=== PATIENT | female | born 2000 | race Caucasian/White ===

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

== ENCOUNTER 2022-06-26 08:00 | Outpatient (CLI) | payer OTHER ==
[2022-06-28 10:07] LABS: HSV 2 IGG TYPE SPEC <0.91 index (0.00-0.90)
== END 2022-06-26 23:59 | disposition home or self-care (01) ==
LOC: LAB.N 08:00
PROVIDERS: ATTEND Physician Assistant
DX: B00.1 Herpesviral vesicular dermatitis (principal)
CPT/HCPCS: 36415; 86695; 86696

== ENCOUNTER 2022-10-15 21:58 | Emergency (ER) | payer MEDICAID, OTHER ==
[2022-10-15 22:12] VITALS: BP 114/78
[2022-10-15 22:27] LABS: RAPID STREP SCREEN Negative (Negative)
--- NOTE | 2022-10-15 22:44 | ED Physician Documentation ---
History of Present Illness - Stated complaint Stated Complaint: BODY PX,HEADACHE,SORETHROAT - Chief complaint Chief Complaint: General - History obtained from History obtained from: Patient - Additonal information Additional information: The patient comes to the emergency department chief complaint of headache, sore throat, body aches, and mild nausea that started today. She states she had a headache yesterday, but it felt like her normal migraine. Today, she woke up with the other symptoms. She denies any runny nose or cough. She has not vomited and actually, has been able to eat food, but states that she can just feel it going all through her system. She has also been able to drink water. The patient denies any other complaints at this time. She states she has had several bowel movements today but has not been diarrhea. 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 : None HEENT: None Psych: Depression Musculoskeletal: None Derm: None - Past Surgical History Past Surgical History: No - Present Medications Home Medications: Ambulatory Orders Medication Instructions Recorded Confirmed No Known Home Medications 10/15/22 10/15/22 - Allergies Allergies/Adverse Reactions: Allergies Allergy/AdvReac Type Severity Reaction Status Date / Time No Known Drug Allergies Allergy Verified 10/15/22 22:12 - Social History Does the pt smoke?: Yes Smoking Status: Current every day smoker Does the pt drink ETOH?: No Does the pt have substance abuse?: Yes - Immunizations Immunizations are current?: Yes - POLST Patient has POLST: No PD ED PE NORMAL - Vitals Vital signs reviewed: Yes - General General: Alert and oriented X 3, No acute distress, Well developed/nourished - HEENT HEENT: Atraumatic, PERRL, EOMI, Moist mucous membranes, Other (Pharyngeal erythema noted. Tonsils symmetrical. Single exudative patch noted on right tonsil.) - Neck Neck: Supple, no meningeal sign, Other (Mild bilateral cervical adenopathy, tender.) - Cardiac Cardiac: RRR, No murmur - Respiratory Respiratory: No respiratory distress, Clear bilaterally - Abdomen Abdomen: Soft, Non tender, Non distended - Derm Derm: Normal color, Warm and dry, No rash - Extremities Extremities: No deformity - Neuro Neuro: Other (Grossly intact) - Psych Psych: Normal mood, Normal affect Results - Vitals Vitals: Vital Signs - 24 hr 10/15/22 22:05 Temperature 37.9 C Heart Rate 112 H Respiratory 18 Rate Blood Pressure 114/78 O2 Saturation 98 Oxygen O2 Source Room air - Labs Labs: Laboratory Tests 10/15/22 22:15 Group A Strep Rapid Negative PD Medical Decision Making - ED course Complexity details: reviewed results, re-evaluated patient, considered differential, d/w patient ED course: Patient was worked up with a rapid strep and a respiratory PCR panel. The rapid strep was negative and I discussed with the patient that most likely, her symptoms are viral in nature. However, we did discuss that a throat culture will be performed off of the swab that was used for the rapid strep, and If there is any significant growth, we will call in an antibiotic for her and notify her. We have discussed symptomatic management at home, as well as the usual indications for return. Departure - Departure Disposition: 01 Home, Self Care Clinical Impression: Viral syndrome Pharyngitis Qualifiers: Pharyngitis/tonsillitis etiology: unspecified etiology Qualified Code(s): J02.9 - Acute pharyngitis, unspecified Condition: Stable Instructions: ED Viral Syndrome Comments: Your symptoms are most likely caused by one of the many viruses that are going around at this time. We are seeing a lot of patients with similar symptoms of body aches, sore throat, upper respiratory symptoms, and digestive upset. In general, these illnesses last for anywhere from a few days to a week or 2 and then go away on their own. We have performed a strep test and a viral panel and you tonight. Your strep test is negative, though this is a rapid strep and a throat culture will be performed on the same swab to see if any other bacteria grow out insignificance. If you happen to be positive for one of the less common strep subgroups, then we will let you know and get you started on antibiotics. A rapid strep test test for the most common type of strep that causes strep throat but as we have discussed occasionally other subgroups can cause infection and your throat. As far as your viral panel, this can sometimes take some hours to come back, so we will let you go home, but if there are any significant positive findings we will call you. You may also visit our website at [email or web address], click on that "my [email or web address]" tab, and sign up for the patient portal to monitor your results from home. Please get plenty of rest and lots of water to drink. If food is upsetting your stomach, then either take a day off of eating or stick with just simple starches like top Ramen or saltines to decrease the digestive work that your stomach has to do. If you begin to get severely worsening throat pain or cannot take in liquids, then please seek medical reevaluation. Otherwise, you may use ibuprofen and Tylenol to help with the discomfort. You may also use [id number] cold/flu preparations, though some of these contain Tylenol which is acetaminophen, so be sure you are not doubling up.
[2022-10-15 23:14] LABS: B. PARAPERTUSSIS- RESP PCR PAN NOT DETECTED; B. PERTUSSIS- RESP PCR PANEL NOT DETECTED; C. PNEUMONIAE- RESP PCR PANEL NOT DETECTED; CORONAVIRUS 229E-RESP PCR NOT DETECTED; CORONAVIRUS HKU1-RESP PCR NOT DETECTED; CORONAVIRUS NL63-RESP PCR NOT DETECTED; CORONAVIRUS OC43-RESP PCR NOT DETECTED; HUMAN METAPNEUMOVIRUS NOT DETECTED; INFLUENZA A- RESP PCR PANEL NOT DETECTED; INFLUENZA B - RESP PCR PANEL NOT DETECTED; M. PNEUMONIAE- RESP PCR PANEL NOT DETECTED; PARAINFLUENZA VIRUS 1 NOT DETECTED; PARAINFLUENZA VIRUS 2 NOT DETECTED; PARAINFLUENZA VIRUS 3 NOT DETECTED; PARAINFLUENZA VIRUS 4 NOT DETECTED; RHINOVIRUS/ENTEROVIRUS NOT DETECTED; RSV- RESP PCR PANEL NOT DETECTED; SARS-CoV-2 -RESP PCR PANEL NOT DETECTED
== END 2022-10-15 22:47 | disposition home or self-care (01) ==
LOC: ED 21:58
DX: B34.9 Viral infection, unspecified (principal); J02.9 Acute pharyngitis, unspecified; F17.200 Nicotine dependence, unspecified, uncomplicated; Z20.822 Contact with and (suspected) exposure to COVID-19
CPT/HCPCS: 87070; 87430; 87633; 99283

== ENCOUNTER 2022-10-29 22:24 | Emergency (ER) | payer MEDICAID ==
[2022-10-29 22:50] LABS: BILIRUBIN,URINE NEGATIVE (NEGATIVE); GLUCOSE, URINE (UA) NEGATIVE (NEGATIVE); KETONES,URINE (UA) NEGATIVE (NEGATIVE); LEUKOCYTE ESTERASE, URINE TRACE (NEGATIVE); NITRITE,URINE NEGATIVE (NEGATIVE); OCCULT BLOOD,URINE NEGATIVE (NEGATIVE); PROTEIN,URINE TRACE mg/dL (NEGATIVE); UROBILINOGEN,URINE 0.2 (NORMAL) E.U./dL (NORMAL)
[2022-10-29 22:54] LABS: CLARITY,URINE CLOUDY (CLEAR); HCG UR QUAL NEGATIVE
[2022-10-29 23:03] LABS: BACTERIA,URINE Few /HPF (None Seen); MUCUS,URINE Few Strands; RBC,URINE 0-5 /HPF (0-5); SQUAMOUS EPITHELIAL CELL,UR MANY Squamous (<= Few); WBC,URINE >25 /HPF (0-5)
--- NOTE | 2022-10-30 02:14 | ED Physician Documentation ---
PD HPI FEMALE - Stated complaint Stated Complaint: FEMALE - Chief complaint Chief Complaint: UTI - History obtained from History obtained from: Patient - History of Present Illness Contributing factors: No: - Additional information Additional information: c/o dysuria x 1-2 days, primarily as she is finishing urinating. Also notes urinary frequency and sensation of incomplete voiding. 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 ACID OPERATOR: None : None HEENT: None Psych: Depression Musculoskeletal: None Derm: None - Past Surgical History Past Surgical History: No - Present Medications Home Medications: Ambulatory Orders Medication Instructions Recorded Confirmed Nitrofurantoin [Macrobid] 100 mg PO BID #9 cap 10/30/22 Phenazopyridine HCl [Pyridium] 200 mg PO TID PRN #6 tablet 10/30/22 - Allergies Allergies/Adverse Reactions: Allergies Allergy/AdvReac Type Severity Reaction Status Date / Time No Known Drug Allergies Allergy Verified 10/29/22 22:41 - Social History Does the pt smoke?: Yes Smoking Status: Current every day smoker Does the pt drink ETOH?: No Does the pt have substance abuse?: Yes - Immunizations Immunizations are current?: Yes - POLST Patient has POLST: No PD ED PE NORMAL - Vitals Vital signs reviewed: Yes - General General: Alert and oriented X 3, No acute distress, Well developed/nourished - Abdomen Abdomen: Soft, Non tender - Back Back: No CVA TTP Results - Vitals Vitals: Oxygen O2 Source Room air - Labs Labs: Laboratory Tests 10/29/22 22:35 Urine Color YELLOW Urine Clarity CLOUDY Urine pH 6.0 Ur Specific [place] >=1.030 H Urine Protein TRACE Urine Glucose (UA) NEGATIVE Urine Ketones NEGATIVE Urine Occult Blood NEGATIVE Urine Nitrite NEGATIVE Urine Bilirubin NEGATIVE Urine Urobilinogen 0.2 (NORMAL) Ur Leukocyte Esterase TRACE H Urine RBC 0-5 Urine WBC >25 H Ur Squamous Epith Cells MANY Squamous H Urine Bacteria Few Urine Mucus Few Strands Ur Microscopic Review INDICATED Urine Culture Comments NOT INDICATED Urine HCG, Qual NEGATIVE PD Medical Decision Making - ED course Complexity details: reviewed results, considered differential, d/w patient ED course: symptoms and urinalysis results are c/w UTI. She is given macrobid and pyridium in ED with prescriptions for both of these medications e-prescribed to her pharmacy of choice. Return precautions discussed Departure - Departure Disposition: 01 Home, Self Care Clinical Impression: Urinary tract infection Condition: Good Instructions: ED UTI Cystitis Female Prescriptions: Nitrofurantoin [Macrobid] 100 mg PO BID #9 cap Phenazopyridine HCl [Pyridium] 200 mg PO TID PRN #6 tablet PRN Reason: dysuria Comments: The urinalysis result is consistent with a urinary tract infection. You are given the first dose of an antibiotic (Macrobid) in the emergency department along with Pyridium (medication that can help alleviate the symptoms associated with a urinary tract infection). Prescriptions for these 2 medications were electronically submitted to the [facility] pharmacy in [place]. Discharge Date/Time: 10/30/22 02:48
[2022-10-30] MEDS ORDERED: NITROFURANTOIN MACRO 100 MG CAPSULE PO STA (02:32)
[2022-10-30] MEDS ORDERED: PHENAZOPYRIDINE 100 MG TABLET PO STA (02:32)
[2022-10-30 02:49] VITALS: BP 113/68
== END 2022-10-30 02:48 | disposition home or self-care (01) ==
LOC: ED 22:24
DX: N39.0 Urinary tract infection, site not specified (principal); F17.200 Nicotine dependence, unspecified, uncomplicated
CPT/HCPCS: 81001; 81025; 99283; A9270; 81003; 87086

== ENCOUNTER 2024-02-02 16:00 | Outpatient (CLI) | payer MEDICAID | END 2024-02-02 16:15 | disposition home or self-care (01) | LOC: LAB.N 16:00 | PROVIDERS: ATTEND Physician Assistant Medical | DX: Z32.01 Encounter for pregnancy test, result positive (principal) | CPT/HCPCS: 36415; 84702 ==

== ENCOUNTER 2024-02-14 08:00 | Outpatient (CLI) | payer MEDICAID ==
[2024-02-14 15:59] LABS: BILIRUBIN,URINE NEGATIVE (NEGATIVE); GLUCOSE, URINE (UA) NEGATIVE (NEGATIVE); KETONES,URINE (UA) NEGATIVE (NEGATIVE); LEUKOCYTE ESTERASE, URINE NEGATIVE (NEGATIVE); NITRITE,URINE NEGATIVE (NEGATIVE); OCCULT BLOOD,URINE NEGATIVE (NEGATIVE); PH,URINE 5.5 PH (5.0-7.5); PROTEIN,URINE NEGATIVE (NEGATIVE); UROBILINOGEN,URINE 0.2 (NORMAL) E.U./dL (NORMAL)
[2024-02-14 16:27] LABS: AMORPHOUS SEDIMENT,UR Moderate /LPF; BACTERIA,URINE Rare /HPF (None Seen); CLARITY,URINE CLOUDY (CLEAR); RBC,URINE None Seen /HPF (0-5); SQUAMOUS EPITHELIAL CELL,UR FEW Squamous (<= Few); WBC,URINE 0-3 /HPF (0-5)
== END 2024-02-14 23:59 | disposition home or self-care (01) ==
LOC: LAB.WC 08:00
PROVIDERS: ATTEND Nurse Practitioner
DX: Z34.90 Encounter for supervision of normal pregnancy, unspecified, unspecified trimester (principal)
CPT/HCPCS: 81001; 87086

== ENCOUNTER 2024-02-27 09:44 | Outpatient (CLI) | payer MEDICAID ==
--- NOTE | 2024-02-27 14:49 | Ultrasound Report ---
PROCEDURE: OB 1st Trimester w/TV INDICATIONS: POSITIVE TEST OUTSIDE/PRIOR DATING DATA: Last menstrual period (LMP): 01/01/2024. LMP-based estimated date of delivery (KIZZY): 10/07/2024. First dating scan (date and location): Today's exam. Estimated date of delivery (KIZZY) from first dating scan: 10/14/2024. TECHNIQUE: Real-time scanning was performed of the fetus and maternal pelvic organs, with image documentation. Endovaginal scanning was also performed to better visualize the fetus and maternal ovaries. COMPARISON: None. FINDINGS: Intrauterine gestational sac present. Embryo: Present, measuring 1.07 cm, 7 weeks 1 day Heart rate: 152 bpm. Other: No perigestational fluid collection. Measurement variability in dating: +/- 4 weeks by LMP, +/- 7 days by mean sac diameter (use before 6 weeks gestation if crown-rump length not able to be measured), +/- 5 days by crown-rump length (6-12 weeks gestation). Maternal organs: Ovaries appear within normal limits. IMPRESSION: Single living intrauterine at 7 weeks 1 day, KIZZY of 10/14/2024. Reviewed by: Yossi Aguayo MD on 02/27/2024 2:48 PM PDT Approved by: Yossi Aguayo MD on 02/27/2024 2:48 PM PDT Station ID: [id number]
== END 2024-02-27 09:45 | disposition home or self-care (01) ==
LOC: DI 09:44
PROVIDERS: ATTEND Nurse Practitioner
DX: Z34.91 Encounter for supervision of normal pregnancy, unspecified, first trimester (principal)

== ENCOUNTER 2024-03-16 08:00 | Outpatient (CLI) | payer MEDICAID ==
[2024-03-16 20:50] LABS: CHLAMYDIA TRACHOMATIS DNA NEGATIVE (NEGATIVE); NEISSERIA GONORRHOEAE DNA NEGATIVE (NEGATIVE)
[2024-03-16 21:51] LABS: BACTERIAL VAGINOSIS DNA POSITIVE (NEGATIVE); CANDIDA GLABRATA DNA NEGATIVE (NEGATIVE); CANDIDA GROUP DNA NEGATIVE (NEGATIVE); CANDIDA KRUSEI DNA NEGATIVE (NEGATIVE); TRICHOMONAS VAGINALIS DNA POSITIVE (NEGATIVE)
== END 2024-03-16 23:59 | disposition home or self-care (01) ==
LOC: LAB.WC 08:00
PROVIDERS: ATTEND Nurse Practitioner
DX: N89.8 Other specified noninflammatory disorders of vagina (principal); Z11.3 Encounter for screening for infections with a predominantly sexual mode of transmission
CPT/HCPCS: 81514; 87491; 87591; 87661

== ENCOUNTER 2024-04-13 08:00 | Outpatient (CLI) | payer MEDICAID ==
[2024-04-13 13:54] LABS: BASOPHILS % (AUTO) 0.4 %; EOSINOPHILS # (AUTO) 0.1 10^3/uL (0.0-0.7); EOSINOPHILS % (AUTO) 1.2 %; HCT - HEMATOCRIT 35.9 % (37.0-47.0); HGB - HEMOGLOBIN 12.3 g/dL (12.0-16.0); LYMPHOCYTES # (AUTO) 1.6 10^3/uL (1.5-3.5); LYMPHOCYTES % (AUTO) 21.7 %; MEAN CORPUSCULAR HEMOGLOBIN 31.2 pg (27.0-31.0); MEAN CORPUSCULAR HGB CONC 34.3 g/dL (32.0-36.0); MEAN CORPUSCULAR VOLUME 91.1 fL (81.0-99.0); MEAN PLATELET VOLUME 9.4 fL (7.9-10.8); MONOCYTES # (AUTO) 0.5 10^3/uL (0.0-1.0); MONOCYTES % (AUTO) 7.3 %; NEUTROPHILS # (AUTO) 5.1 10^3/uL (1.5-6.6); NEUTROPHILS % (AUTO) 68.9 %; PLT - PLATELET COUNT 265 10^3/uL (130-450); RED BLOOD COUNT 3.94 10^6/uL (4.20-5.40); WHITE BLOOD COUNT 7.4 x10^3/uL (4.8-10.8)
[2024-04-14 04:10] LABS: HBsAG SCREEN Negative (Negative); HIV SCREEN 4TH GENERATION Non Reactive (Non Reactive)
[2024-04-14 05:13] LABS: RPR Non Reactive (Non Reactive)
[2024-04-15 01:12] LABS: HCV AB Non Reactive (Non Reactive)
== END 2024-04-13 23:59 | disposition home or self-care (01) ==
LOC: LAB.WC 08:00
PROVIDERS: ATTEND Nurse Practitioner
DX: Z34.90 Encounter for supervision of normal pregnancy, unspecified, unspecified trimester (principal)
CPT/HCPCS: 36415; 82728; 85025; 86592; 86762; 86787; 86803; 86850; 86900; 86901; 87340; 87389

== ENCOUNTER 2024-10-09 16:47 | Inpatient (IN) ==
[2024-10-09] MEDS ORDERED: SODIUM CHLORIDE FLUSH 0.9% 10 ML SYRINGE IVP PRN (17:37)
[2024-10-09] MEDS ORDERED: TRANEXAMIC ACID IN NACL 1,000 MG/100 ML BAG IV PRN (17:37)
[2024-10-09] MEDS ORDERED: fentaNYL 100 MCG/2 ML VIAL IVP PRN (17:37)
[2024-10-09] MEDS ORDERED: OXYTOCIN/SODIUM CHLORIDE 500 ML IV PRN (17:37)
[2024-10-09] MEDS ORDERED: OXYTOCIN 10 UNIT/ML VIAL IM PRN (17:37)
[2024-10-09] MEDS ORDERED: lidocaine 1% 20 ML MDV ID PRN (17:37)
[2024-10-09] MEDS ORDERED: miSOPROStoL 200 MCG TABLET BC PRN (17:37)
[2024-10-09] MEDS ORDERED: LABETALOL 20 MG/4 ML SYRINGE IVP PRN ×3 (17:37)
[2024-10-09] MEDS ORDERED: NIFEdipine 10 MG CAPSULE PO PRN (17:37)
[2024-10-09] MEDS ORDERED: METHYLERGONOVINE 0.2 MG/ML VIAL IM PRN (17:37)
[2024-10-09] MEDS ORDERED: TERBUTALINE 1 MG/ML VIAL SUBQ PRN (17:37)
[2024-10-09] MEDS ORDERED: miSOPROStoL 200 MCG TABLET PR PRN (17:37)
[2024-10-09] MEDS ORDERED: hydrALAZINE INJ 20 MG/ML VIAL IVP PRN (17:37)
--- NOTE | 2024-10-09 17:44 | ANESTHESIA PROCEDURE NOTE ---
Pre-Anesthesia VS, & Labs Diagnosis Surgical Diagnosis:: labor induction Procedure Procedure: labor epidural NPO NPO: Other Is Patient ?: Yes Meds/Allgy Home Medications Ambulatory Orders Medication Instructions Recorded Confirmed vitamins no.159-iron 1 tab PO 06/21/24 10/02/24 fumarate 28 mg-folic acid 800 mcg tablet ( Vitamin) Allergies Allergies Allergy/AdvReac Type Severity Reaction Status Date / Time No Known Drug Allergies Allergy Verified 10/02/24 15:06 [facility] Medical History Medical History (Updated 09/26/24 @ 15:44 by Ricky Ledezma MD) Normal in second trimester Social History Social History (Updated 06/21/24 @ 18:07 by Keshia Moore MA) Smoking Status: Never smoker Do you vape?: Yes Living arrangement: At home Living Condition: With spouse/s.o. Relationship: Do you feel safe in your home environment?: Yes Suffered physical, verbal, emotional, or financial abuse?: No History of Abuse: No POLST Patient has POLST: No Anesthesia Exam (Expanded) Exam General: Alert, Oriented x3, Cooperative and No acute distress Dental: WNL Mouth Opening: Greater than 4 Fingerbreadths Neck Mobility: Normal Mallampati classification: I Thyromental Distance: greater than 6 cm Respiratory: Lungs clear Cardiovascular: Regular rate Plan Plan Anesthesia Type: Epidural Consent for Procedure(s) Verified and Reviewed: Yes Code Status: Attempt Resuscitation ASA Classification ASA classification: 2-Mild systemic disease Is this case an emergency?: No
--- NOTE | 2024-10-09 17:46 | HISTORY & PHYSICAL EXAMINATION ---
Admit History Smoking Status: Never smoker Other Maternal History Other Maternal History: HPI: This 24 yo @ 39+2 weeks by 7+1 week ultrasound (discordant with LMP) presents to L&D for elective induction of labor. Upon arrival her cervix was 3/60/-3, posterior, soft, intact and vertex by exam. Feeling irregular contractions but not painful. NAIK SCORE:6. She had been consented for induction in the clinic last week and has no further questions. She has been a patient of [facility] for the duration of her which has remained uncomplicated with the exception of iron deficiency anemia and first trimester trichomonas positive but negative at 36 weeks re-screen. ROS: No Headache, visual changes or right upper quadrant abdominal pain. Denies significant N/V. Denies urinary urgency or dysuria. All other symptoms reviewed and were negative except per HPI. In the event of an emergency, accepts the administration of blood products. Specific Issues/Plans 23y/o G-2P-0 LMP: 01/01/2024 KIZZY by LMP: 10/07/2024 02/27/2024/ 7+1/ NOT CONSISTENT ( KIZZY by u/s 10/14/2024) Final KIZZY: 10/14/2024 Medical Hx: No significant Surgical Hx: None Social Hx: Complex social situation with partner, who openly questions the paternity. Denies current use of alcohol marijuana or other recreational drugs. Endorses tobacco. Reports that she is safe in current relationship. Positive for trichomonas in the first trimester (treated). Re-screen at term (negative) Family Hx: Denies family history of congenital anomalies, Cystic Fibrosis or chromosomal abnormalities ALLERGIES: NKDA RX: PNV PROBLEMS: Trich + on 03/16/2024 visit- repeat in 3rd trimester (negative) Anemia - intolerance of oral iron Pre- Weight: 111.8 BMI: 18.67 Blood type: B+ Rh: Positive Antibody: Negative CBC: PLT 265 HCT 35.9 HGB 12.3 RUB: equivocal VZV: Immune HBsAg: Negative HepC: NR RPR/AB-EIA: NR HIV: NR PAP:2018-normal, 2023 ASCUS GC/CT: 03/16 Negative HSV:denies in self Genetic testing: declined Covid: declined Flu: declined FAS: 06/06 Placenta: Posterior Cord: 3VC MICHELLE: 10.2cm EFW: 407.3gm 40%tile 50gm OGCT: 136 TDAP: 07/18/2024 Breast Pump: 3rd trimester PLT 256 HCT 31.2; HGB 10.6 RSV: 08/29/2024 GBS: Negative & repeat GC/CT/trich: 09/19/2024 NEG/ NEG Delivery plan: desires epidural for pain management, breast feeding, okay all baby meds MOD: Anticipate Contraception: Physical exam: Normocephalic, atraumatic No increased work of breathing Abdomen gravid, soft, nontender. EFW 3500 FHR baseline 135, moderate variability, + accelerations, no significant decelerations Contractions irregula/not palpated. Uterine resting tone soft SVE 3/60/-2 , vertex, membranes intact Bilateral LE's no edema Mood is good. Assessment: 24 yo @ 39+2 weeks gestation by 7+1 wk U/S Term gestation FHR 135 Cat I GBS NEG Plan: Admit to [facility] for term gestation induction of labor at 39+2 Misoprostol 50mcg q 4 hours buccal until active labor unable to administer by protocol. Continuous monitoring Jacuzzi PRN. Nitrous oxide PRN. Epidural PRN Maternal Request. Anticipate . Meds/Allgy Home Medications Ambulatory Orders Medication Instructions Recorded Confirmed vitamins no.159-iron 1 tab PO 06/21/24 10/02/24 fumarate 28 mg-folic acid 800 mcg tablet ( Vitamin) Allergies Allergies Allergy/AdvReac Type Severity Reaction Status Date / Time No Known Drug Allergies Allergy Verified 10/02/24 15:06 [facility] Medical History Medical History (Updated 09/26/24 @ 15:44 by Ricky Ledezma MD) Normal in second trimester Social History Social History (Updated 06/21/24 @ 18:07 by Keshia Moore MA) Smoking Status: Never smoker If you are a former smoker, when did you quit? (Date/Year): 2023 Do you vape?: Yes Patient requests smoking cessation consult: No Initiate information on smoking cessation: No Living arrangement: At home Living Condition: With spouse/s.o. Relationship: Do you feel safe in your home environment?: Yes Suffered physical, verbal, emotional, or financial abuse?: No History of Abuse: No POLST Patient has POLST: No Plan for Labor Plan For Labor I expect patient to be DC'd or transferred within 96 hours.: Yes Conclusion/Plan Lab Results 10/09/24 17:20
[2024-10-09 18:04] LABS: BASOPHILS # (AUTO) 0.1 10^3/uL (0.0-0.1); BASOPHILS % (AUTO) 0.5 %; EOSINOPHILS % (AUTO) 0.4 %; HCT - HEMATOCRIT 31.4 % (37.0-47.0); HGB - HEMOGLOBIN 10.4 g/dL (12.0-16.0); LYMPHOCYTES # (AUTO) 1.4 10^3/uL (1.5-3.5); LYMPHOCYTES % (AUTO) 13.7 %; MEAN CORPUSCULAR HEMOGLOBIN 27.9 pg (27.0-31.0); MEAN CORPUSCULAR HGB CONC 33.1 g/dL (32.0-36.0); MEAN CORPUSCULAR VOLUME 84.2 fL (81.0-99.0); MEAN PLATELET VOLUME 9.6 fL (7.9-10.8); MONOCYTES # (AUTO) 0.9 10^3/uL (0.0-1.0); MONOCYTES % (AUTO) 8.5 %; NEUTROPHILS # (AUTO) 7.9 10^3/uL (1.5-6.6); NEUTROPHILS % (AUTO) 75.6 %; PLT - PLATELET COUNT 325 10^3/uL (130-450); RED BLOOD COUNT 3.73 10^6/uL (4.20-5.40); RED CELL DISTRIBUTION WIDTH 13.6 % (12.0-15.0); WHITE BLOOD COUNT 10.5 x10^3/uL (4.8-10.8)
[2024-10-09] MEDS: miSOPROStoL 100 MCG TABLET BC SCH (19:21)
[2024-10-09] MEDS: LACTATED RINGERS 1,000 ML IV PRN (21:06)
[2024-10-09] MEDS: SODIUM CHLORIDE FLUSH 0.9% 10 ML SYRINGE IVP SCH (21:06)
[2024-10-09] MEDS: OXYTOCIN/SODIUM CHLORIDE 500 ML IV SCH (23:54)
[2024-10-10] MEDS ORDERED: ePHEDrine 50 MG/ML VIAL IVP ONE (00:22)
[2024-10-10] MEDS ORDERED: ROPIVACAINE 0.2% 200 MG/100 ML BAG EP ONE (00:25)
[2024-10-10] MEDS: LACTATED RINGERS 500 ML IV ONE (00:30)
[2024-10-10] MEDS ORDERED: NALBUPHINE 10 MG/ML AMP IVP PRN (01:01)
[2024-10-10] MEDS ORDERED: ePHEDrine 50 MG/ML VIAL IVP PRN (01:01)
[2024-10-10] MEDS ORDERED: NALOXONE 0.4 MG/ML VIAL IVP PRN ×2 (01:01→10:36)
[2024-10-10] MEDS ORDERED: METOCLOPRAMIDE 10 MG/2 ML VIAL IVP PRN (01:01)
[2024-10-10] MEDS ORDERED: ONDANSETRON 4 MG/2 ML VIAL IVP PRN (01:01)
[2024-10-10] MEDS ORDERED: diphenhydrAMINE INJ 50 MG/ML VIAL IVP PRN (01:01)
[2024-10-10] MEDS: LACTATED RINGERS 1,000 ML IV SCH (02:01)
[2024-10-10] MEDS: ACETAMINOPHEN 500 MG TABLET PO PRN ×2 (05:46→12:47)
[2024-10-10] MEDS: ROPIVACAINE 0.2% 200 MG/100 ML BAG EP PRN (07:05)
--- NOTE | 2024-10-10 07:08 | PROVIDER PROGRESS NOTE ---
Labor Progress Note Labor Progress Note Labor Progress Note/Additional Text: S/O: pit @ 12mu/min @0557 SROM upon RN exam 5/80/-2 130, moderate variability, + accelerations, no significant decelerations Ctx q 2-3.5 VS WNL Sleeping, comfortable with epidural. Frequently repositioned by RN with peanut ball. Currently in right side lying "flying cowgirl" Partner snoring loudly on couch. A: 24 yo @ 39+3 by 7+1 week ultrasound Elective IOL FHR category I GBS negative P: Continue titrating pitocin for adequate labor pattern per protocol If unchanged by 4 hours from last exam, will consider IUPC maintain epidural for pain management ecncourage continued rotations on peanut ball. Will plan to review plan of care with oncall physician later this morning. Anticipate
[2024-10-10] MEDS ORDERED: [UNRECOGNIZED DRUG - REMARK] PO SCH (09:00)
[2024-10-10] MEDS ORDERED: LABETALOL 20 MG/4 ML SYRINGE IVP PRN ×2 (10:36)
[2024-10-10] MEDS ORDERED: NIFEdipine 10 MG CAPSULE PO PRN (10:36)
[2024-10-10] MEDS ORDERED: hydrALAZINE INJ 20 MG/ML VIAL IVP PRN ×2 (10:36)
[2024-10-10] MEDS ORDERED: LABETALOL 5 MG/1 ML 20 ML MDV IVP PRN (10:36)
[2024-10-10] MEDS ORDERED: OXYTOCIN/SODIUM CHLORIDE 500 ML IV PRN (10:36)
[2024-10-10] MEDS ORDERED: SIMETHICONE CHEW 80 MG TABLET PO PRN (10:36)
--- NOTE | 2024-10-10 10:41 | DELIVERY NOTE ---
Delivery Note Delivery Comments (Free Text/Narrative) Delivery Comments (Free Text/Narrative): This 24 -year-old, G 2 P 1 . @ 39+2 weeks gestation by 7+1 week ultrasound/ LMP presented last evening for scheduled IOL and in stable condition. Cervix was 3/60/-3 and Vertex presentation by ann's. GBS negative. Received one dose of misoprostol 50mcg buccal followed by oxytocin with a of 14mcg/mu. FHR pattern demonstrated 135 baseline in a category I prior to second stage. Normal labor course. Epidural placed upon maternal request. SROM occurred @ 0557, clear fluid. The next exam, she was C/C +3 and pushing began. : Normal spontaneous vaginal delivery of a viable male infant on 10/10/2024 @ 1000. No nuchal cord. he was placed on maternal abdomen, stimulated, dried and placed skin to skin. Apgars 8 & 9 @ 1 & 5 minutes. The umbilical cord was allowed to stop pulsating at which time it was doubly clamped by delivering provider and cut by FOB. 3VC. Cord blood was obtained. Fundal massage and gently cord traction applied for active management of the third stage, placenta delivered spontaneously and intact and appeared normal. EBL 350cc. Placenta was not sent to pathology. Pitocin administered via IV for hemostasis and allowed to run freely. Uterine massage was performed until uterus was deemed firm. weight: 3250. Inspection of the perineum noted an a left vaginal sulcus. first-degree midline laceration. The laceration was repaired under epidural anesthesia with running 3-0 vicryl rapide, repaired in standards fashion under sterile conditions. Upon re-inspection the patient was homeostatic. Uterus again massaged and found to be firm. Needle and sponge counts were correct. Uterine fundus firm and there is no excessive bleeding. Tissues well approximated. Skin to skin initiated. Family bonding well. Both mother and baby are in stable condition.
[2024-10-10] MEDS: IBUPROFEN 600 MG TABLET PO PRN (12:46)
--- NOTE | 2024-10-10 13:07 | PHARMACY PROGRESS NOTE ---
Best Possible Medication History Admit Date and Time: 10/09/24 1737 Home Medications Medication Instructions Recorded Confirmed Type vitamins no.159-iron 1 tab PO DAILY 06/21/24 10/10/24 History fumarate 28 mg-folic acid 800 mcg tablet ( Vitamin) famotidine 20 mg tablet 20 mg PO BID 10/10/24 10/10/24 History ferrous gluconate 240 mg (27 mg 240 mg PO DAILY 10/10/24 10/10/24 History iron) tablet (Ferate) Processed by: Pharmacy (Medication reconciliation completed by Information LeadSony) Medications reviewed in ED?: No Medication History completed: Yes Patient Interview: Completed Secondary Source(s): Insurance records [facility] Statement: As the person ultimately responsible for medication therapy, providers are able to order a medication from an existing home medication list in [facility] via the "Reconcile Routine" prior to Confirmation of that medication by child support specialist. Such practice is discouraged except when the physician, in their clinical judgment, deems that a medical need exists for a medication without regard to previous use.
[2024-10-10] MEDS: FERRIC GLUCONATE 125 MG in SODIUM CHLORIDE 0.9% 100ML 100 ML IV ONE (14:00)
[2024-10-10] MEDS: PRENATAL VITAMIN TABLET PO SCH (15:46)
[2024-10-10] MEDS ORDERED: MEASLES,MUMPS & RUBELLA VACC 0.5 ML VIAL SUBQ ONE (16:42)
[2024-10-10] MEDS: DOCUSATE SODIUM 100 MG CAPSULE PO SCH (20:44)
[2024-10-11 08:16] VITALS: O2SAT 98
--- NOTE | 2024-10-11 12:01 | Discharge Summary ---
Discharge Summary Admit Date: 10/09/24 Discharge Date: 10/11/24 HOSPITAL COURSE Hospital Course: Diagnosis on Admission: 1. 24 yo @ 39+2 weeks gestation by 7+1 wk U/S 2. Term gestation 3. FHR 135 Cat I 4. GBS NEG Diagnosis on Discharge: 1. 24yo PPD #1 s/p TSVD viable male infant 2. 3. Normal recovery Brief History: She is a patient of [facility] who presented on 08/08/2025 for induction of labor. Cervix was 3/60/-3 and vertex. She received 1 dose of 50mcg BC misoprostol followed by initiation of pitocin for induction of labor with a maximum infusion rate of 14mU/min. Epidural was placed per maternal request. SROM occurred at 0557 and was noted to be a moderate amount of clear fluid. She spontaneously progressed to deliver a viable male infant on 10/10/2024 @ 0957 weighing 3250g. Perineum was noted to have a 1st degree laceration which was repaired using a 3-[address]-1 needle in standard fashion and under sterile conditions. Apgars were 8/9 at 1 and 5 minutes respectively. EBL 350 mL. She has been doing well in her course. She is ambulating and tolerating a regular diet. She is urinating without difficulty and her lochia is normal. Her pain is well controlled with oral medications. She will be discharged home today on day #1 with instructions to continue taking her vitamin while and to continue taking Ibuprofen and Tylenol over the counter as needed for pain management. She intends to follow up with myself at [facility] [place] in 1 week for routine visit or sooner if needed. She has been given precautions to call if she has any worsening fevers, chills, abdominal pain, increased vaginal bleeding or foul smelling vaginal lochia. Physical Exam: Normocephalic, atraumatic. Heart RRR w/o M/G/R, lungs CTAB, abdomen soft and nontender with fundus firm at U, perineum intact, light lochia rubra, bilateral LE's no edema. Mood is good. ALLERGIES Allergies Allergy/AdvReac Type Severity Reaction Status Date / Time No Known Drug Allergies Allergy Verified 10/02/24 15:06 MEDICATIONS Ambulatory Orders Medication Instructions Recorded Confirmed vitamins no.159-iron 1 tab PO DAILY 06/21/24 10/10/24 fumarate 28 mg-folic acid 800 mcg tablet ( Vitamin) famotidine 20 mg tablet 20 mg PO BID 10/10/24 10/10/24 ferrous gluconate 240 mg (27 mg 240 mg PO DAILY 10/10/24 10/10/24 iron) tablet (Ferate) LABS 10/09/24 17:20 Discharge Plan Discharge Patient Disposition: Home, Self Care Prescriptions: Continued famotidine 20 mg tablet 20 mg PO BID ferrous gluconate [Ferate] 240 mg (27 mg iron) tablet 240 mg PO DAILY Vitamin 28 mg iron- 800 mcg tablet 1 tab PO DAILY Activity Restrictions: Activity as Tolerated Diet: Regular Print Language: Georgian Patient Instructions: Vaginal After, , Self Care Follow-up Care: Val Jacobson ARNP [Primary Care Provider] -
[2024-10-11] MEDS: MEASLES,MUMPS & RUBELLA VACC 0.5 ML VIAL SUBQ ONE (12:02)
[2024-10-11 12:15] VITALS: BP 116/83; TEMP 98.4
--- NOTE | 2024-10-11 14:43 | Labor Flowsheet ---
Labor Flowsheet Datetime Report Generated by CPN: 10/11/2024 14:43 Datetime: 10/11/2024 12:14 Pulse: 93 SpO2 (%): 96 LaborFlag: Labor Datetime: 10/11/2024 12:13 VITAL SIGNS NBP Sys/Tish/Mean (mmHg): 116 : 83 : 90 Datetime: 10/10/2024 10:27 TEACHING Instructional Method: Demo; Verbal Teaching Comments: support given to mom Datetime: 10/10/2024 10:07 MEDICATIONS Pitocin (milliunits): Increased to @ 999 Medication Comments: Bolus pitocin per provider Val Buckhardt Datetime: 10/10/2024 09:57 Stage 2 Comments: Baby boy born Datetime: 10/10/2024 09:24 STAGE 2 Pushing: Coached on Pushing Pushing Position: Pushing with Contractions Pushing Progress: Descent with Pushing Station Vacuum/Forceps Applied: Pt started pushing Datetime: 10/10/2024 09:16 VAGINAL EXAM Dilatation (cm): 10.0 Effacement (%): 100 Station: 3 Exam by: Val Ramon Vaginal Exam Comments: Huddle with patient explaining pushing process and teaching provided I/O Interventions: Veronica Discontinued Patient Care Comments: 300 ml clear urine/ 100cc veronica balloon deflated Plan of Care: Vaginal Delivery Labor/Induction: Pushing Methods Datetime: 10/10/2024 09:15 Stage of : Labor Provider Reviewed Strip: Yes Strip Reviewed by: Kenya Lomax COMMUNICATION Communication: RN at Bedside; Provider at Bedside Provider Notified (Name): Val Ramon Notification Reason: Status Update; Status; Labor Status Communication Comments: patient expresed discomfort and os ready for be checked Datetime: 10/10/2024 08:38 Patient Position/Activity: Right Lateral Datetime: 10/10/2024 08:29 ASSESSMENT A Monitor Mode: Telemetry FHR Baseline Rate : 130 Variability: Moderate 6-25 bpm Accelerations: 15X15 Decelerations: None Category: Category I Oxygen Method: Room Air Datetime: 10/10/2024 08:19 Temperature (C): 36.9 Vital Sign Comments: readjusting BP cuff and monitoring BP in Pt Datetime: 10/10/2024 08:07 UTERINE ACTIVITY Monitor Mode: External Quality: Moderate Duration (sec): 60-70 Pattern: Normal: <= 5 Contractions in 10 Minutes Resting Tone (Palpate): Relaxed Pitocin Checklist: At Least 1 Acceleration of 15 bpm x 15 Seconds in 30 Minutes or Adequate Variabi lity Datetime: 10/10/2024 07:29 Frequency (min): every 4-5 min MONTEVIDEO UNITS (Computed) Contractions in Ten Minutes: 3 Datetime: 10/10/2024 07:06 Actions for Decelerations: IV Bolus Datetime: 10/10/2024 05:57 Membrane Status: Ruptured Membranes Ruptured Date/Time: 10/10/2024 05:57 Membranes Rupture Method: Spontaneous Amniotic Fluid Color: Clear Amniotic Fluid Amount: Moderate Amniotic Fluid Odor: Normal Cervix, Consistency: Soft Cervix, Position: Anterior Datetime: 10/10/2024 05:49 MATERNAL ASSESSMENT Nausea/Vomiting: Present Datetime: 10/10/2024 04:45 Monitor Interventions for UA: [place] Adjusted Contraction Comments: coupling of UCs noted Datetime: 10/10/2024 01:58 Cervical Ripening Agents: Cytotec @ Datetime: 10/10/2024 00:52 Epidural Procedure Other: Pump Started Datetime: 10/10/2024 00:39 Epidural Procedure: Test Dose Datetime: 10/10/2024 00:30 PROCEDURE TIME OUT Procedure Verify: Correct Patient Identity; Correct Side and Site are Marked; Accurate Procedure Co nsent Form; Agreement on Procedure to be Done; Correct Patient Position; Relevant Images and Results are Properly Labeled and Displayed ANESTHESIA Anesthesia Plans: Epidural Datetime: 10/09/2024 23:59 Anesthesia Comments: Allie Aube COGNOS BI ADMINISTRATOR notified pt requesting epidural Datetime: 10/09/2024 23:28 Vaginal Bleeding: None Datetime: 10/09/2024 20:58 PATIENT CARE IV/Blood Work: IV Bolus Started; New IV Bag Hung
== END 2024-10-11 14:42 | disposition home or self-care (01) | DRG 807 ==
LOC: WFO 16:47 → FBP 16:51
PROVIDERS: ADMIT Nurse Practitioner; ATTEND Nurse Practitioner